=== PATIENT | female | born 1980 | race Two or more races ===

== ENCOUNTER 2020-04-26 01:21 | Emergency (ER) | payer MEDICAID, OTHER ==
[~2020-04-26] VITALS: Ht 162.6 cm; Wt 65.8 kg
[2020-04-26] MEDS ORDERED: LORazepam 2MG/ML-1ML VIAL IV ONE (03:15)
[2020-04-26] MEDS ORDERED: KETOROLAC TROMETH 30 MG/ML 1ML VIAL IV ONE (03:15)
[2020-04-26] MEDS ORDERED: ACETAMINOPHEN 325 MG TAB PO ONE (03:15)
[2020-04-26 04:00] VITALS: BP 135/94
== END 2020-04-26 04:28 | disposition home or self-care (01) ==
LOC: EDBD 01:21 → ER 01:21
DX: S06.0X1A Concussion with loss of consciousness of 30 minutes or less, initial encounter (principal); S13.9XXA Sprain of joints and ligaments of unspecified parts of neck, initial encounter; I10 Essential (primary) hypertension; Z32.02 Encounter for pregnancy test, result negative; W01.0XXA Fall on same level from slipping, tripping and stumbling without subsequent striking against object, initial encounter; Y93.89 Activity, other specified; Y92.89 Other specified places as the place of occurrence of the external cause; Y99.8 Other external cause status
CPT/HCPCS: 70450; 72125; 81025; 96374; 96375; 99285; J1885; J2060; L0120